=== PATIENT | female | born 1940 | race Caucasian/White ===

== ENCOUNTER 2016-10-22 07:03 | Emergency (ER) | payer MEDICARE ==
[2016-10-22] MEDS ORDERED: SODIUM CHLORIDE 0.9% 500 ML IV STA (07:26)
--- NOTE | 2016-10-22 07:31 | ED ---
General Adult HPI - General Chief complaint: Abdominal Pain Stated complaint: Abdominal Pain Time Seen by Provider: 10/22/16 07:05 Source: patient, RN notes reviewed Mode of arrival: ambulatory Limitations: no limitations - History of Present Illness Initial comments: This is a 76-year-old female who presents to emergency department complaining that she does not feel well. Patient states last night she started not feeling well and today she woke up she was nauseated and she vomited times one. Patient denies any diarrhea. Patient states currently she is not nauseous and she is in no pain. Patient states the abdominal pain was more of a discomfort diffusely through her abdomen. Patient states she's having normal bowel movements. Patient denies fever or chills. Patient denies any chest pain difficulty breathing shortness of breath. Patient states she had similar symptoms a month ago. And they went away on their own. Patient denies headache patient denies numbness weakness. Patient states she is supposed to follow up with her primary medical care doctor on 5:15. Patient denies any dysuria hematuria urinary frequency. - Related Data Home Medications Medication Instructions Recorded Confirmed ALPRAZolam [Alprazolam] 0.25 mg PO HS 10/22/16 10/22/16 Losartan Potassium [Losartan 25 mg PO QAM 10/22/16 10/22/16 Potassium] Magnesium 200 mg PO DAILY 10/22/16 10/22/16 Omeprazole [PriLOSEC] 20 mg PO HS 10/22/16 10/22/16 Ubidecarenone [Co Q-10] 100 mg PO DAILY 10/22/16 10/22/16 Allergies Allergy/AdvReac Type Severity Reaction Status Date / Time No Known Allergies Allergy Verified 10/22/16 07:32 Review of Systems ROS Statement: Those systems with pertinent positive or pertinent negative responses have been documented in the HPI. ROS Other: All systems not noted in ROS Statement are negative. Past Medical History Past Medical History: GERD/Reflux, Hypertension History of Any Multi-Drug Resistant Organisms: None Reported Past Surgical History: Hysterectomy, Orthopedic Surgery Past Psychological History: No Psychological Hx Reported Smoking Status: Former smoker Past Alcohol Use History: Occasional Past Drug Use History: None Reported General Exam - General Exam Comments Initial Comments: GENERAL: Patient is well-developed and well-nourished. Patient is nontoxic and well- hydrated and is in mild distress. ENT: Neck is soft and supple. No significant lymphadenopathy is noted. Oropharynx is clear. Moist mucous membranes. Neck has full range of motion without eliciting any pain. EYES: The sclera were anicteric and conjunctiva were pink and moist. Extraocular movements were intact and pupils were equal round and reactive to light. Eyelids were unremarkable. PULMONARY: Unlabored respirations. Good breath sounds bilaterally. No audible rales rhonchi or wheezing was noted. CARDIOVASCULAR: There is a regular rate and rhythm without any murmurs gallops or rubs. ABDOMEN: Soft and nontender with normal bowel sounds. No palpable organomegaly was noted. There is no palpable pulsatile mass. SKIN: Skin is clear with no lesions or rashes and otherwise unremarkable. NEUROLOGIC: Patient is alert and oriented x3. Cranial nerves II through XII are grossly intact. Motor and sensory are also intact. Normal speech, volume and content. Symmetrical smile. MUSCULOSKELETAL: Normal extremities with adequate strength and full range of motion. No lower extremity swelling or edema. No calf tenderness. LYMPHATICS: No significant lymphadenopathy is noted PSYCHIATRIC: Normal psychiatric evaluation. Normal interpersonal interactions appears functionally intact in deals appropriately with others. Limitations: no limitations Course Vital Signs 10/22/16 10/22/16 10/22/16 07:05 08:00 08:49 Temperature 99.7 F H 98.2 F 98.1 F Pulse Rate 83 80 77 Respiratory 18 18 18 Rate Blood Pressure 194/86 169/81 133/58 O2 Sat by Pulse 97 100 97 Oximetry 10/22/16 11:09 Temperature 98.4 F Pulse Rate 82 Respiratory 18 Rate Blood Pressure 135/85 O2 Sat by Pulse 97 Oximetry Medical Decision Making - Medical Decision Making I went back into the room to reevaluate the patient she stated she still didn't feel right but she was having no pain she is not short of breath she is having no nausea at this time and she felt as though she could go home. - Lab Data Result diagrams: 10/22/16 07:40 10/22/16 07:40 Lab Results 10/22/16 10/22/16 10/22/16 Range/Units 07:40 07:40 11:05 WBC 11.7 H (3.8-10.6) k/uL RBC 5.60 H (3.80-5.40) m/uL Hgb 15.8 (11.4-16.0) gm/dL Hct 49.1 H (34.0-46.0) % MCV 87.5 (80.0-100.0) fL MCH 28.3 (25.0-35.0) pg MCHC 32.3 (31.0-37.0) g/dL RDW 13.9 (11.5-15.5) % Plt Count 277 (150-450) k/uL Neutrophils % 86 % Lymphocytes % 4 % Monocytes % 6 % Eosinophils % 1 % Basophils % 1 % Neutrophils # 10.1 H (1.3-7.7) k/uL Lymphocytes # 0.5 L (1.0-4.8) k/uL Monocytes # 0.6 (0-1.0) k/uL Eosinophils # 0.1 (0-0.7) k/uL Basophils # 0.1 (0-0.2) k/uL Sodium 140 (137-145) mmol/L Potassium 4.8 (3.5-5.1) mmol/L Chloride 103 (98-107) mmol/L Carbon Dioxide 27 (22-30) mmol/L Anion Gap 10 mmol/L BUN 15 (7-17) mg/dL Creatinine 0.69 (0.52-1.04) mg/dL Est GFR (MDRD) Af Amer >60 (>60 ml/min/1.73 sqM) Est GFR (MDRD) Non-Af >60 (>60 ml/min/1.73 sqM) Glucose 120 H (74-99) mg/dL Calcium 9.4 (8.4-10.2) mg/dL Total Bilirubin 0.8 (0.2-1.3) mg/dL AST 33 (14-36) U/L ALT 42 (9-52) U/L Alkaline Phosphatase 100 (38-126) U/L Total Protein 8.0 (6.3-8.2) g/dL Albumin 4.4 (3.5-5.0) g/dL Amylase 66 (30-110) U/L Lipase 146 (23-300) U/L Urine Color Yellow Urine Appearance Clear (Clear) Urine pH 6.5 (5.0-8.0) Ur Specific [place] 1.019 (1.001-1.035) Urine Protein Negative (Negative) Urine Glucose (UA) Negative (Negative) Urine Ketones Negative (Negative) Urine Blood Negative (Negative) Urine Nitrite Negative (Negative) Urine Bilirubin Negative (Negative) Urine Urobilinogen <2.0 (<2.0) mg/dL Ur Leukocyte Esterase Negative (Negative) Disposition Clinical Impression: Viral illness Disposition: HOME SELF-CARE Condition: Good Instructions: Viral Syndrome (ED) Referrals: Ham Sykes MD [Primary Care Provider] - 1-2 days Time of Disposition: 11:35
[2016-10-22] MEDS ORDERED: ONDANSETRON 4 MG/2 ML VIAL IVP STA (07:43)
[2016-10-22 07:58] LABS: Basophils # (A) 0.1 k/uL (0-0.2); Basophils % (A) 1 %; CH 28.7; Eosinophils # (A) 0.1 k/uL (0-0.7); Eosinophils % (A) 1 %; HCT 49.1 % (34.0-46.0); HDW 2.55; HGB 15.8 gm/dL (11.4-16.0); Luc # (Auto) 0.24; Luc % (Auto) 2; Lymphocytes # (A) 0.5 k/uL (1.0-4.8); Lymphocytes % (A) 4 %; MCH 28.3 pg (25.0-35.0); MCHC 32.3 g/dL (31.0-37.0); MCV 87.5 fL (80.0-100.0); Mean Platelet Volume 6.5; Monocytes # (A) 0.6 k/uL (0-1.0); Monocytes % (A) 6 %; Neutrophils # (A) 10.1 k/uL (1.3-7.7); Neutrophils % (A) 86 %; RDW 13.9 % (11.5-15.5); WBC 11.7 k/uL (3.8-10.6); WBC (Perox) 11.15
[2016-10-22 08:10] LABS: ALT 42 U/L (9-52); AST 33 U/L (14-36); Alkaline Phosphatase 100 U/L (38-126); Amylase 66 U/L (30-110); Anion Gap 10 mmol/L; Blood Urea Nitrogen 15 mg/dL (7-17); Calcium 9.4 mg/dL (8.4-10.2); Carbon Dioxide 27 mmol/L (22-30); Chloride 103 mmol/L (98-107); Glucose 120 mg/dL (74-99); Non-African American GFR(MDRD) >60 (>60 ml/min/1.73 sqM); Potassium 4.8 mmol/L (3.5-5.1); Sodium 140 mmol/L (137-145); Total Bilirubin 0.8 mg/dL (0.2-1.3)
--- NOTE | 2016-10-22 08:35 | XR ---
EXAMINATION TYPE: XR KUB DATE OF EXAM: 10/22/2016 8:22 AM COMPARISON: NONE HISTORY: Pain TECHNIQUE: Single supine KUB image of the abdomen is obtained FINDINGS: Small bowel demonstrates no evidence for dilatation or air fluid levels. Gas and fecal material is seen in non-distended colon. No convincing evidence for pneumoperitoneum. No unusual calcifications. The lung bases are clear. The osseous structures are intact. IMPRESSION: 1. Overall nonobstructive bowel gas pattern.
[2016-10-22 11:14] VITALS: TEMP 98.4
[2016-10-22 11:21] LABS: Appearance,Urine Clear (Clear); Bilirubin,Urine Negative (Negative); Glucose,Urine (UA) Negative (Negative); Ketones,Urine Negative (Negative); Leukocyte Esterase,Urine Negative (Negative); Nitrite,Urine Negative (Negative); PH, Urine 6.5 (5.0-8.0); Protein,Urine Negative (Negative); Specific Gravity,Urine 1.019 (1.001-1.035); UA Billing (MACRO vs. MICRO) CHEM; Urobilinogen,Urine <2.0 mg/dL (<2.0)
[2016-10-22 11:55] VITALS: BP 140/71; PULSE 95; RESP 16
== END 2016-10-22 11:53 | disposition home or self-care (01) ==
LOC: EC 07:03
DX: B34.9 Viral infection, unspecified (principal); R11.2 Nausea with vomiting, unspecified; I10 Essential (primary) hypertension; K21.9 Gastro-esophageal reflux disease without esophagitis; Z79.899 Other long term (current) drug therapy; Z87.891 Personal history of nicotine dependence
CPT/HCPCS: 36415; 80053; 82150; 83690; 85025; 81003; 74000; 99284; 96374; 96361; J2405

== ENCOUNTER → 2017-03-05 | Outpatient (CLI) | payer MEDICARE ==
--- NOTE | 2017-03-08 10:28 | MM ---
Reason for exam: screening (asymptomatic). Last mammogram was performed 2 years ago. History: Patient is postmenopausal. Physical Findings: A clinical breast exam by your physician is recommended on an annual basis and results should be correlated with mammographic findings. MG 3D Screening Mammo W/Cad Bilateral CC and MLO view(s) were taken. Prior study comparison: March 19, 2015, bilateral MG screening mammo w CAD. November 24, 2013, bilateral MG screening mammo w CAD. There are scattered fibroglandular densities. There are typically benign vascular calcifications in both breasts. There is no discrete abnormality. ASSESSMENT: Negative, BI-RAD 1 RECOMMENDATION: Routine screening mammogram of both breasts in 1 year.
== END | disposition home or self-care (01) ==
LOC: RADMAMWWP 09:53
PROVIDERS: ATTEND Internal Medicine
DX: Z12.31 Encounter for screening mammogram for malignant neoplasm of breast (principal)
CPT/HCPCS: 77063; G0202

== ENCOUNTER → 2018-09-30 | Outpatient (CLI) | payer MEDICARE ==
--- NOTE | 2018-09-30 12:35 | BD ---
EXAMINATION TYPE: Axial Bone Density DATE OF EXAM: 09/30/2018 COMPARISON: NONE CLINICAL HISTORY: Height: 5 FT Weight: 139 FRAX RISK QUESTIONS: Glucocorticoids (More than 3mos): STEROIDS FOR HER EYES FROM OCTOBER- MAY 2018 (Ex: prednisone, prednisolone, methylprednisolone, dexamethasone, and hydrocortisone). RISK FACTORS HISTORY OF: Active: NO Postmenopausal woman: TOTAL HYST AGE 48 Lost more than 2 inches in height since high school: YES MEDICATIONS: Prednisone or other steroids: EYE STEROIDS How Long: FROM OCTOBER - MAY 2018 Additional Medications: BLOOD PRESSURE MEDS, ACID REFLUX MEDS Additional History: EXAM MEASUREMENTS: Bone mineral densitometry was performed using the [employer]. Bone mineral density as measured about the Lumbar spine is: ----- L1-L4(G/cm2): 1.585 T Score Values are as follows: ----- L2: 3.2 ----- L3: 3.7 ----- L4: 3.5 ----- L1-L4: 3.4 Bone mineral density has: INCREASED 2.6 % since study of: 2014 Bone mineral density about the R hip (g/cm2): 1.192 Bone mineral density about the L hip (g/cm2): 1.095 T Score values are as follows: -----R Neck: 1.1 -----L Neck: 0.4 -----R Total: 1.5 -----L Total: 1.9 Bone mineral density has: INCREASED 1.5 % since study of: 2014 IMPRESSION: No evidence for osteoporosis or osteopenia. NOTE: T-SCORE=SD OF THE YOUNG ADULT MEAN.
--- NOTE | 2018-10-04 08:24 | MM ---
Reason for exam: screening (asymptomatic). Last mammogram was performed 1 year and 7 months ago. History: Patient is postmenopausal. Physical Findings: A clinical breast exam by your physician is recommended on an annual basis and results should be correlated with mammographic findings. MG 3D Screening Mammo W/Cad Bilateral CC and MLO view(s) were taken. Prior study comparison: March 05, 2017, bilateral MG 3d screening mammo w/cad. March 19, 2015, bilateral MG screening mammo w CAD. There are scattered fibroglandular densities. No significant changes when compared with prior studies. ASSESSMENT: Negative, BI-RAD 1 RECOMMENDATION: Routine screening mammogram of both breasts in 1 year.
== END ==
LOC: RADBDWWP 10:24
PROVIDERS: ATTEND Obstetrics & Gynecology
DX: Z12.31 Encounter for screening mammogram for malignant neoplasm of breast (principal); Z78.0 Asymptomatic menopausal state
CPT/HCPCS: 77063; 77067; 77080

== ENCOUNTER → 2020-11-14 | Outpatient (CLI) | payer MEDICARE ==
--- NOTE | 2020-11-15 07:47 | MM ---
Reason for exam: screening (asymptomatic). Last mammogram was performed 2 years and 1 month ago. History: Patient is postmenopausal. Physical Findings: A clinical breast exam by your physician is recommended on an annual basis and results should be correlated with mammographic findings. MG 3D Screening Mammo W/Cad Bilateral CC and MLO view(s) were taken. Prior study comparison: September 30, 2018, bilateral MG 3d screening mammo w/cad. March 05, 2017, bilateral MG 3d screening mammo w/cad. There are scattered fibroglandular densities. Finding: There are typically benign vascular calcifications. No significant changes in finding since September 30, 2018 and March 05, 2017. ASSESSMENT: Benign, BI-RAD 2 RECOMMENDATION: Routine screening mammogram of both breasts in 1 year.
== END | disposition home or self-care (01) ==
LOC: RADMAMWWP 09:10
PROVIDERS: ATTEND Internal Medicine
DX: Z12.31 Encounter for screening mammogram for malignant neoplasm of breast (principal); Z78.0 Asymptomatic menopausal state
CPT/HCPCS: 77063; 77067

== ENCOUNTER → 2021-11-28 | Outpatient (CLI) | payer MEDICARE ==
--- NOTE | 2021-11-28 16:07 | BD ---
EXAMINATION TYPE: Axial Bone Density DATE OF EXAM: 11/28/2021 COMPARISON: 09/30/2018 CLINICAL HISTORY: 81 years year old Female. ICD-10 CODE: BONE DISORDER M899 Height: 59.5 IN Weight: 137 LBS RISK FACTORS HISTORY OF: Active: YES Postmenopausal woman: TOTAL HYST AGE 48 Lost more than 2 inches in height since high school: YES 06/22" MEDICATIONS: Additional Medications: VIT D, HIGH BLOOD PRESSURE MEDS, ACID REFLUX MEDS EXAM MEASUREMENTS: Bone mineral densitometry was performed using the [employer] System. Bone mineral density as measured about the Lumbar spine is: ----- L1-L4(G/cm2): 1.616 T Score Values are as follows: ----- L1: 3.3 ----- L2: 3.4 ----- L3: 4.1 ----- L4: 3.5 ----- L1-L4: 3.6 Bone mineral density has: Increased 1.5% since study of: 09/30/2018 Bone mineral density about the R hip (g/cm2): 1.146 Bone mineral density about the L hip (g/cm2): 1.159 T Score values are as follows: -----R Neck: 0.8 -----L Neck: 0.9 -----R Total: 1.4 -----L Total: 2.0 Bone mineral density has: Decreased -0.2% since study of: 09/30/2018 FRAX%s: The graph provided illustrates a 2.2 chance for a major osteoporotic fx and a 0.3 chance for the hips probability for fx in 10 years time. IMPRESSION: Normal (Values between +1 and -1 indicate normal bone mass). Consider repeating this study in 5 year s or sooner if there is some new clinical indication. NOTE: T-SCORE=SD OF THE YOUNG ADULT MEAN.
--- NOTE | 2021-12-01 18:35 | MM ---
Reason for Exam: Screening (asymptomatic). Last mammogram was performed 1 year(s) and 1 month(s) ago. Patient History: Menarche at age 12. First Full-Term at age 21. Left ovary removed at age 47. Right ovary removed at age 47. Hysterectomy at age 47. Postmenopausal. Risk Values: Anitha 5 year model risk: 1.4%. NCI Lifetime model risk: 2.1%. Prior Study Comparison: 03/05/2017 Bilateral Screening Mammogram, [facility]. 09/30/2018 Bilateral Screening Mammogram, [facility]. 11/14/2020 Bilateral Screening Mammogram, [facility]. Tissue Density: There are scattered fibroglandular densities. Findings: Analyzed By CAD. Benign vascular calcifications on both sides. No significant change from prior exams. Overall Assessment: Negative, BI-RAD 1 Management: Screening Mammogram of both breasts in 1 year. A clinical breast exam by your physician is recommended on an annual basis and results should be correlated with mammographic findings. Also, the patient should continue monthly self breast exams. Electronically signed and approved by: Dali Ramirez M.D. Radiologist
== END | disposition home or self-care (01) ==
LOC: RADMAMWWP 06:56
PROVIDERS: ATTEND Internal Medicine
DX: Z12.31 Encounter for screening mammogram for malignant neoplasm of breast (principal); Z78.0 Asymptomatic menopausal state
CPT/HCPCS: 77063; 77067; 77080

== ENCOUNTER 2022-12-21 08:56 | Emergency (ER) | payer MEDICARE ==
[2022-12-21 09:11] VITALS: RESP 16
[2022-12-21] MEDS ORDERED: Acetaminophen-Codeine 300-30mg TAB PO STA (09:46)
[2022-12-21] MEDS ORDERED: IBUPROFEN 600 MG TAB PO STA (09:46)
[2022-12-21] MEDS ORDERED: CEPHALEXIN 500 MG CAP PO STA (09:46)
--- NOTE | 2022-12-21 10:23 | XR ---
EXAMINATION TYPE: XR knee complete RT DATE OF EXAM: 12/21/2022 COMPARISON: None HISTORY: Pain and redness TECHNIQUE: 3 view right knee FINDINGS: Tiny medial femoral condylar and tibial plateau spurs are present. Mild narrowing of the me dial compartment joint space may be present. No joint effusion is evident. Posterior superior patella r spurring is noted. No acute fracture or dislocation is evident. Follow up exams can be performed 7-10 days from acute trauma for continued pain IMPRESSION: 1. Mild degenerative changes medial compartment right knee.
--- NOTE | 2022-12-21 10:37 | ED ---
Lower Extremity Injury HPI - General Chief Complaint: Extremity Injury, Lower Stated Complaint: R knee infection,Tachy Time Seen by Provider: 12/21/22 09:20 Source: patient, RN notes reviewed Mode of arrival: ambulatory Limitations: no limitations - History of Present Illness Initial Comments: This is an 82-year-old female who presents to the emergency department for right knee pain. States that she [place] fell [place] a week ago and injured her right knee. 1-2 days ago, she started to notice redness and increased warmth around the abrasion. States that it also seems to be increasing in pain and she is concerned about infection. Denies any fevers. She is taking aspirin with no relief in pain. She is still able to walk without difficulty. Denies any fevers, chills, sore throat, cough, dyspnea, chest pain, palpitations, abdominal pain, nausea, vomiting, diarrhea, back pain, or headaches. MD Complaint: knee injury Onset/Timin -: week(s) - Related Data Home Medications Medication Instructions Recorded Confirmed Losartan Potassium 25 mg PO DAILY 10/22/16 12/21/22 Omeprazole [PriLOSEC] 20 mg PO DAILY@1200 10/22/16 12/21/22 Multivitamins, Thera [Multivitamin 1 tab PO DAILY 12/21/22 12/21/22 (formulary)] Previous Rx's Medication Instructions Recorded Cephalexin [Keflex] 500 mg PO Q6HR 7 Days #28 cap 12/21/22 Allergies Allergy/AdvReac Type Severity Reaction Status Date / Time prednisone AdvReac Rapid Verified 12/21/22 11:44 Heart Rate/Itching/Cough steroids AdvReac Rapid Uncoded 12/21/22 11:44 Heart Rate/Itching/Cough Review of Systems ROS Statement: Those systems with pertinent positive or pertinent negative responses have been documented in the HPI. ROS Other: All systems not noted in ROS Statement are negative. Past Medical History Past Medical History: GERD/Reflux, Hypertension History of Any Multi-Drug Resistant Organisms: None Reported Past Surgical History: Hysterectomy, Orthopedic Surgery Past Psychological History: No Psychological Hx Reported Smoking Status: Never smoker Past Alcohol Use History: Occasional Past Drug Use History: None Reported General Exam Limitations: no limitations General appearance: alert, in no apparent distress Head exam: Present: atraumatic, normocephalic, normal inspection Respiratory exam: Present: normal lung sounds bilaterally. Absent: respiratory distress, wheezes, rales, rhonchi, stridor Cardiovascular Exam: Present: regular rate, normal rhythm, normal heart sounds. Absent: systolic murmur, diastolic murmur, rubs, gallop, clicks Extremities exam: Present: other (Abrasion to the anterior aspect of the right patella. Minor surrounding erythema, warmth, and tenderness. No active drainage.) Neurological exam: Present: alert, oriented X3, CN II-XII intact Psychiatric exam: Present: normal affect, normal mood Course Vital Signs 12/21/22 12/21/22 09:07 12:15 Temperature 98.9 F 98.2 F Pulse Rate 89 62 Respiratory 16 16 Rate Blood Pressure 195/94 165/84 O2 Sat by Pulse 98 96 Oximetry Medical Decision Making - Medical Decision Making This is an 82-year-old female who presents emergency department for right knee pain. Was pt. sent in by a medical professional or institution? @ -No Did you speak to anyone other than the patient for history? @ -No Did you review nursing and triage notes? @ -Yes, and I agree, it is accurate with regards to the patient's symptoms. Were old charts reviewed? @ -No Differential Diagnosis? @ -Differential Knee Injury Fracture, dislocation, sprain, contusion, meniscus injury, ACL/LCL/MCL/PCL injury, this is not meant to be an all-inclusive list. EKG interpreted by me (3pts min.)? @ -None X-rays interpreted by me (1pt min.)? @ -X-ray of the right knee obtained. My interpretation identifies no evidence of soft tissue swelling. CT interpreted by me (1pt min.)? @ -Not obtained U/S interpreted by me (1pt. min.)? @ -Not obtained What testing was considered but not performed? (CT, X-rays, U/S, labs)? Why? @ -None What meds were considered but not given? Why? @ -None Did you discuss the management of the patient with other professionals? @ -No Did you reconcile home meds? @ -No Was smoking cessation discussed for >3mins.? @ -No Was critical care preformed (if so, how long)? @ -No Were there social determinants of health that impacted care today? How? (Homelessness, low income, unemployed, alcoholism, drug addiction, transportation, low edu. Level, literacy, decrease access to med. care, longterm, rehab)? @ -No Was there de-escalation of care discussed even if they declined? (Discuss DNR or withdrawal of care, Hospice)? @ -No What co-morbidities impacted this encounter? (DM, HTN, Smoking, COPD, CAD, Cancer, CVA, Hep., AIDS, mental health diagnosis, sleep apnea, morbid obesity)? @ -None Was patient admitted / discharged? @ -Discharged. On physical exam, she does appear to have a small abrasion over the knee where she fell. There is a very small amount of surrounding erythema and warmth. There are no open areas of drainage. She has no fevers and her vital signs are appropriate. X-ray of the right knee obtained revealing no acute findings, including no evidence of osseous destruction, soft tissue swelling, or subcutaneous gas formation. It appears that she might be starting to develop a small surrounding cellulitis. Prescription for Keflex provided with dosing instructions reviewed. Undiagnosed new problem with uncertain prognosis? @ -None Drug Therapy requiring intensive monitoring for toxicity (Heparin, Nitro, Insulin, Cardizem)? @ -None Were any procedures done? @ -None Diagnosis/symptom? @ -Cellulitis Acute, or Chronic, or Acute on Chronic? @ -Acute Uncomplicated (without systemic symptoms) or Complicated (systemic symptoms)? @ -Uncomplicated Side effects of treatment? @ -None Exacerbation, Progression, or Severe Exacerbation] @ -Not applicable Poses a threat to life or bodily function? @ -No Return precautions reviewed in depth, the patient is instructed to return to the emergency department with any new, worsening, or concerning symptoms. Patient ve rbalized understanding. This case was discussed in detail with the attending ED physician, Dr. Coy. Presentation, findings, and treatment plan discussed in detail as well. - Radiology Data Radiology results: report reviewed, image reviewed Disposition Clinical Impression: Cellulitis of knee, right Disposition: HOME SELF-CARE Instructions (If sedation given, give patient instructions): Cellulitis (ED) Additional Instructions: Return to the emergency department with any new, worsening, or concerning symptoms. Take the antibiotic as prescribed for 7 days. Alternate with ibuprofen and Tylenol as needed for pain relief. Follow up with your primary care provider in 1-2 days. Prescriptions: Cephalexin [Keflex] 500 mg PO Q6HR 7 Days #28 cap Is patient prescribed a controlled substance at d/c from ED?: No Referrals: Davey Iverson MD [Primary Care Provider] - 1-2 days
[2022-12-21] MEDS ORDERED: IBUPROFEN 600 MG STARTER PACK 4 TAB BTL PO STA (11:23)
[2022-12-21] MEDS ORDERED: ACET/COD 300 MG/30 MG STARTER PACK 6 TAB BTL PO STA (11:23)
[2022-12-21 12:16] VITALS: BP 165/84; PULSE 62; TEMP 98.2
== END 2022-12-21 12:31 | disposition home or self-care (01) ==
LOC: EC 08:56
DX: M17.11 Unilateral primary osteoarthritis, right knee (principal); I10 Essential (primary) hypertension; K21.9 Gastro-esophageal reflux disease without esophagitis; Z79.899 Other long term (current) drug therapy; Z88.8 Allergy status to other drugs, medicaments and biological substances
CPT/HCPCS: 99283

== ENCOUNTER → 2022-12-29 | Outpatient (CLI) | payer MEDICARE ==
--- NOTE | 2022-12-29 10:17 | MM ---
Reason for Exam: Screening (asymptomatic). Last mammogram was performed 1 year(s) and 1 month(s) ago. Patient History: Menarche at age 12. First Full-Term at age 21. Left ovary removed at age 47. Right ovary removed at age 47. Hysterectomy at age 47. Postmenopausal. Risk Values: Anitha 5 year model risk: 1.4%. NCI Lifetime model risk: 1.9%. Prior Study Comparison: 09/30/2018 Bilateral Screening Mammogram, [facility]. 11/14/2020 Bilateral Screening Mammogram, [facility]. 11/28/2021 Bilateral MG 3D screening mammo w/cad, [facility]. Tissue Density: The breast tissue is almost entirely fat. Findings: Analyzed By CAD. There is no suspicious group of microcalcifications or new suspicious mass in either breast. Overall Assessment: Negative, BI-RAD 1 Management: Screening Mammogram of both breasts in [address] [facility] will attempt to contact patient to return for supplemental views and ultrasound if indicated. Patient should continue monthly self-breast exams. A clinical breast exam by your physician is recommended on an annual basis. This exam should not preclude additional follow-up of suspicious palpable abnormalities. Note on Anitha scores and lifetime risk: 1. A Anitha score greater than 3% is considered moderate risk. If this is the case, consider specialist referral to assess eligibility for a risk reducing agent. 2. If overall lifetime risk for the development of breast cancer is 20% or higher, the patient may qualify for future screening with alternating mammogram and breast MRI. Electronically signed and approved by: Jet Corrales DO
== END | disposition home or self-care (01) ==
LOC: RADMAMWWP 07:13
PROVIDERS: ATTEND Family Medicine
DX: Z12.31 Encounter for screening mammogram for malignant neoplasm of breast (principal); Z78.0 Asymptomatic menopausal state
CPT/HCPCS: 77063; 77067

== ENCOUNTER 2023-07-26 19:17 | Emergency (ER) | payer MEDICARE ==
[2023-07-26 19:59] VITALS: TEMP 98.2
--- NOTE | 2023-07-26 20:15 | ED ---
General Adult HPI - General Source: patient Mode of arrival: ambulatory Limitations: no limitations <Juan Pablo Butt - Last Filed: 07/26/23 20:16> <Hugo Ugarte - Last Filed: 08/10/23 05:43> - General Chief complaint: Recheck/Abnormal Lab/Rx Stated complaint: high BP - History of Present Illness Initial comments: 83-year-old female with a past medical history significant for hypertension presenting to the ED with a chief complaint of hypertension. Patient states over the past few weeks has been tracking her blood pressure secondary to difficulties with controlling her high blood pressure. Notes recently was just increased on her losartan dose to 75 mg which reports she has been taking as instructed. States today her blood pressure was in the 200s systolic prompting presentation to the ED for further evaluation. No chest pain shortness of breath at this time. (Juan Pablo Butt) - Related Data Home Medications Medication Instructions Recorded Confirmed Losartan Potassium 25 mg PO DAILY 10/22/16 12/21/22 Omeprazole [PriLOSEC] 20 mg PO DAILY@1200 10/22/16 12/21/22 Multivitamins, Thera [Multivitamin 1 tab PO DAILY 12/21/22 12/21/22 (formulary)] Previous Rx's Medication Instructions Recorded Cephalexin [Keflex] 500 mg PO Q6HR 7 Days #28 cap 12/21/22 Allergies Allergy/AdvReac Type Severity Reaction Status Date / Time prednisone AdvReac Rapid Verified 07/26/23 19:56 Heart Rate/Itching/Cough steroids AdvReac Rapid Uncoded 07/26/23 19:56 Heart Rate/Itching/Cough Review of Systems ROS Other: All systems not noted in ROS Statement are negative. <Juan Pablo Butt - Last Filed: 07/26/23 20:16> ROS Other: All systems not noted in ROS Statement are negative. <Hugo Ugarte - Last Filed: 08/10/23 05:43> ROS Statement: Those systems with pertinent positive or pertinent negative responses have been documented in the HPI. Past Medical History Past Medical History: GERD/Reflux, Hypertension History of Any Multi-Drug Resistant Organisms: None Reported Past Surgical History: Hysterectomy, Orthopedic Surgery Past Psychological History: No Psychological Hx Reported Smoking Status: Never smoker Past Alcohol Use History: Occasional Past Drug Use History: None Reported <Juan Pablo Butt - Last Filed: 07/26/23 20:16> General Exam Limitations: no limitations <Juan Pablo Butt - Last Filed: 07/26/23 20:16> Limitations: no limitations General appearance: alert, in no apparent distress Head exam: Present: atraumatic, normocephalic Eye exam: Present: normal appearance. Absent: scleral icterus, conjunctival injection ENT exam: Present: normal oropharynx Neck exam: Present: normal inspection Respiratory exam: Present: normal lung sounds bilaterally. Absent: respiratory distress, wheezes, rales, rhonchi, stridor, accessory muscle use Cardiovascular Exam: Present: regular rate, normal rhythm, normal heart sounds. Absent: systolic murmur, diastolic murmur, rubs, gallop GI/Abdominal exam: Present: soft. Absent: distended, tenderness, guarding, shamika ound, rigid, mass Extremities exam: Present: normal inspection, normal capillary refill. Absent: pedal edema, calf tenderness Back exam: Present: normal inspection. Absent: CVA tenderness (R), CVA tenderness (L) Neurological exam: Present: alert Skin exam: Present: warm, dry, intact, normal color. Absent: rash <Hugo Ugarte - Last Filed: 08/10/23 05:43> - General Exam Comments Initial Comments: Visual Physical Exam Vital signs reviewed General: Well-appearing, nontoxic, no acute distress. Head: Normocephalic, atraumatic Eyes: PERRLA, EOMI ENT: Airway patent Chest: Nonlabored breathing Skin: No visual rash, normal skin tone Neuro: Alert and oriented 3 Musculoskeletal: No gross abnormalities (Juan Pablo Butt) Course Vital Signs 07/26/23 07/26/23 07/26/23 19:54 21:45 22:57 Temperature 98.2 F Pulse Rate 67 67 59 L Respiratory 18 16 16 Rate Blood Pressure 212/88 174/73 138/78 O2 Sat by Pulse 98 96 96 Oximetry EKG Findings - EKG Results: EKG: interpreted by ERMD, sinus rhythm (With occasional supraventricular complex, rate 70 bpm), normal axis - Blocks, [place], Hypertrophy, ST Abn: QRS axis and voltage: pulmonary disease, low voltage (<0.5 MV total QRS and <1.0 MV in each precordial lead) <Hugo Ugarte - Last Filed: 08/10/23 05:43> Medical Decision Making <Juan Pablo Butt - Last Filed: 07/26/23 20:16> - Lab Data Result diagrams: 07/26/23 20:31 07/26/23 20:31 <Hugo Ugarte - Last Filed: 08/10/23 05:43> - Medical Decision Making Quicknote portion performed. Signed Juan Pablo Butt PA-C (Juan Pablo Butt) The patient had chest x-ray which I interpreted as negative for acute infiltrate, congestive heart failure, pneumothorax Was pt. sent in by a medical professional or institution (, PA, HAND ENGRAVER, urgent care, hospital, or correction...) When possible be specific @ -[No] Did you speak to anyone other than the patient for history (EMS, parent, family, police, friend...)? What history was obtained from this source @ -[No] Did you review nursing and triage notes (agree or disagree)? Why? @ -[I reviewed and agree with nursing and triage notes] Were old charts reviewed (outside hosp., previous admission, EMS record, old EKG, old radiological studies, urgent care reports/EKG's, correction records)? Report findings @ -[No old charts were reviewed] Differential Diagnosis (chest pain, altered mental status, abdominal pain women, abdominal pain men, vaginal bleeding, weakness, fever, dyspnea, syncope, headache, dizziness, GI bleed, back pain, seizure, CVA, palpatations, mental health, musculoskeletal)? @ -[Amphetamine Toxicity Anxiety Disorders Apnea, Sleep Cocaine-Related Cardiomyopathy Heart Failure Hyperthyroidism, Thyroid Storm, and Graves Disease Hypertrophic Cardiomyopathy Myocardial Infarction Phencyclidine Toxicity Primary Aldosteronism Stroke, Hemorrhagic Stroke, Ischemic EKG interpreted by me (3pts min.). @ -[I interpreted as above] X-rays interpreted by me (1pt min.). @ -[I interpreted as above CT interpreted by me (1pt min.). @ -[None done] U/S interpreted by me (1pt. min.). @ -[None done] What testing was considered but not performed or refused? (CT, X-rays, U/S, labs)? Why? @ -[None] What meds were considered but not given or refused? Why? @ -[None] Did you discuss the management of the patient with other professionals (professionals i.e. , PA, HAND ENGRAVER, lab, RT, psych nurse, social work faculty member, fur stretcher, teacher, hydrographical technical officer, case therapist)? Give summary @ -[No] Was smoking cessation discussed for >3mins.? @ -[No] Was critical care preformed (if so, how long)? @ -[No] Were there social determinants of health that impacted care today? How? (Homelessness, low income, unemployed, alcoholism, drug addiction, transportation, low edu. Level, literacy, decrease access to med. care, usp, rehab)? @ -[No] Was there de-escalation of care discussed even if they declined (Discuss DNR or withdrawal of care, Hospice)? DNR status @ -[No] What co-morbidities impacted this encounter? (DM, HTN, Smoking, COPD, CAD, Cancer, CVA, ARF, Chemo, Hep., AIDS, mental health diagnosis, sleep apnea, morbid obesity)? @ -[None] Was patient admitted / discharged? Hospital course, mention meds given and route, prescriptions, significant lab abnormalities, going to OR and other pertinent info. @ -[Patient is an 83-year-old woman with history of hypertension who has been having increased blood pressure recently. She has had improvement here. The hypertension is asymptomatic, will have the patient follow-up with her physician to ensure that blood pressure control is maintained. Discussed return parameters. Undiagnosed new problem with uncertain prognosis? @ -[No] Drug Therapy requiring intensive monitoring for toxicity (Heparin, Nitro, Insulin, Cardizem)? @ -[No] Were any procedures done? @ -[No] Diagnosis/symptom? @ -[Acute on chronic hypertension Acute, or Chronic, or Acute on Chronic? @ -[default] Uncomplicated (without systemic symptoms) or Complicated (systemic symptoms)? @ -[Uncomplicated Side effects of treatment? @ -[No] Exacerbation, Progression, or Severe Exacerbation? @ -[No] Poses a threat to life or bodily function? How? (Chest pain, [place], [place], pneumonia, PE, COPD, DKA, ARF, appy, cholecystitis, CVA, Diverticulitis, Homicidal, Suicidal, threat to staff... and all critical care pts) @ -[No] (Trachy,Hugo) - Lab Data Lab Results 07/26/23 07/26/23 07/26/23 Range/Units 20:31 20:31 20:31 WBC 7.7 (3.8-10.6) k/uL RBC 5.29 (3.80-5.40) m/uL Hgb 15.1 (11.4-16.0) gm/dL Hct 46.5 H (34.0-46.0) % MCV 87.9 (80.0-100.0) fL MCH 28.6 (25.0-35.0) pg MCHC 32.5 (31.0-37.0) g/dL RDW 13.5 (11.5-15.5) % Plt Count 342 (150-450) k/uL MPV 7.8 Neutrophils % 59 % Lymphocytes % 26 % Monocytes % 8 % Eosinophils % 4 % Basophils % 1 % Neutrophils # 4.5 (1.3-7.7) k/uL Lymphocytes # 2.0 (1.0-4.8) k/uL Monocytes # 0.6 (0-1.0) k/uL Eosinophils # 0.3 (0-0.7) k/uL Basophils # 0.1 (0-0.2) k/uL PT 10.3 (10.0-12.5) sec INR 0.9 (<1.2) APTT 24.2 (22.0-30.0) sec Sodium 139 (137-145) mmol/L Potassium 4.4 (3.5-5.1) mmol/L Chloride 105 (98-107) mmol/L Carbon Dioxide 26 (22-30) mmol/L Anion Gap 8 mmol/L BUN 12 (7-17) mg/dL Creatinine 0.67 (0.52-1.04) mg/dL Est GFR (CKD-EPI)AfAm >90 (>60 ml/min/1.73 sqM) Est GFR (CKD-EPI)NonAf 82 (>60 ml/min/1.73 sqM) Glucose 107 H (74-99) mg/dL Calcium 9.7 (8.4-10.2) mg/dL Magnesium 2.3 (1.6-2.3) mg/dL Total Bilirubin 0.6 (0.2-1.3) mg/dL AST 32 (14-36) U/L ALT 26 (4-34) U/L Alkaline Phosphatase 121 (38-126) U/L Troponin I (0.000-0.034) ng/mL Total Protein 8.0 (6.3-8.2) g/dL Albumin 4.5 (3.5-5.0) g/dL 07/26/23 Range/Units 20:31 WBC (3.8-10.6) k/uL RBC (3.80-5.40) m/uL Hgb (11.4-16.0) gm/dL Hct (34.0-46.0) % MCV (80.0-100.0) fL MCH (25.0-35.0) pg MCHC (31.0-37.0) g/dL RDW (11.5-15.5) % Plt Count (150-450) k/uL MPV Neutrophils % % Lymphocytes % % Monocytes % % Eosinophils % % Basophils % % Neutrophils # (1.3-7.7) k/uL Lymphocytes # (1.0-4.8) k/uL Monocytes # (0-1.0) k/uL Eosinophils # (0-0.7) k/uL Basophils # (0-0.2) k/uL PT (10.0-12.5) sec INR (<1.2) APTT (22.0-30.0) sec Sodium (137-145) mmol/L Potassium (3.5-5.1) mmol/L Chloride (98-107) mmol/L Carbon Dioxide (22-30) mmol/L Anion Gap mmol/L BUN (7-17) mg/dL Creatinine (0.52-1.04) mg/dL Est GFR (CKD-EPI)AfAm (>60 ml/min/1.73 sqM) Est GFR (CKD-EPI)NonAf (>60 ml/min/1.73 sqM) Glucose (74-99) mg/dL Calcium (8.4-10.2) mg/dL Magnesium (1.6-2.3) mg/dL Total Bilirubin (0.2-1.3) mg/dL AST (14-36) U/L ALT (4-34) U/L Alkaline Phosphatase (38-126) U/L Troponin I <0.012 (0.000-0.034) ng/mL Total Protein (6.3-8.2) g/dL Albumin (3.5-5.0) g/dL Disposition <Juan Pablo Butt - Last Filed: 07/26/23 20:16> Is patient prescribed a controlled substance at d/c from ED?: No <Hugo Ugarte - Last Filed: 08/10/23 05:43> Clinical Impression: Hypertension Disposition: HOME SELF-CARE Condition: Good Instructions (If sedation given, give patient instructions): Hypertension (ED) Referrals: Melissa Andrade DO [Primary Care Provider] - 1-2 days
--- NOTE | 2023-07-26 21:04 | XR ---
EXAMINATION TYPE: XR chest 2V DATE OF EXAM: 07/26/2023 8:36 PM CLINICAL INDICATION:Female, 83 years old with history of Chest Pain; [facility] COMPARISON: Chest radiographs from 12/29/2010 TECHNIQUE: XR chest 2V Frontal and lateral views of the chest. FINDINGS: Lungs/Pleura: There is flattening of the diaphragm with increased lucency of the lungs. No evidence o f pneumothorax, pleural effusion or focal consolidation. Pulmonary vascularity: Unremarkable. Heart/mediastinum: Cardiomediastinal silhouette is unremarkable. Musculoskeletal: No acute osseous pathology. IMPRESSION: 1. No acute cardiopulmonary disease process. 2. COPD changes.
[2023-07-26 21:24] LABS: Basophils # (A) 0.1 k/uL (0-0.2); Basophils % (A) 1 %; Eosinophils # (A) 0.3 k/uL (0-0.7); Eosinophils % (A) 4 %; HCT 46.5 % (34.0-46.0); HGB 15.1 gm/dL (11.4-16.0); Lymphocytes % (A) 26 %; MCH 28.6 pg (25.0-35.0); MCHC 32.5 g/dL (31.0-37.0); MCV 87.9 fL (80.0-100.0); Mean Platelet Volume 7.8; Monocytes # (A) 0.6 k/uL (0-1.0); Monocytes % (A) 8 %; Neutrophils # (A) 4.5 k/uL (1.3-7.7); Neutrophils % (A) 59 %; Platelet Count 342 k/uL (150-450); RBC 5.29 m/uL (3.80-5.40); RDW 13.5 % (11.5-15.5); WBC 7.7 k/uL (3.8-10.6)
[2023-07-26 21:32] LABS: INR 0.9 (<1.2); Partial Thromboplastin Time 24.2 sec (22.0-30.0); Prothrombin Time 10.3 sec (10.0-12.5)
[2023-07-26 21:34] LABS: ALT 26 U/L (4-34); AST 32 U/L (14-36); African American GFR (CKD) >90 (>60 ml/min/1.73 sqM); Albumin 4.5 g/dL (3.5-5.0); Alkaline Phosphatase 121 U/L (38-126); Anion Gap 8 mmol/L; Blood Urea Nitrogen 12 mg/dL (7-17); Calcium 9.7 mg/dL (8.4-10.2); Carbon Dioxide 26 mmol/L (22-30); Chloride 105 mmol/L (98-107); Glucose 107 mg/dL (74-99); Magnesium 2.3 mg/dL (1.6-2.3); Non-African American GFR(CKD) 82 (>60 ml/min/1.73 sqM); Potassium 4.4 mmol/L (3.5-5.1); Sodium 139 mmol/L (137-145); Total Bilirubin 0.6 mg/dL (0.2-1.3)
[2023-07-26 22:10] VITALS: RESP 16
[2023-07-26] MEDS: cloNIDine HCL 0.2 MG TAB PO STA (22:14)
[2023-07-26 23:04] VITALS: BP 138/78; PULSE 59
== END 2023-07-26 23:04 | disposition home or self-care (01) ==
LOC: EC 19:17
DX: I10 Essential (primary) hypertension (principal); K21.9 Gastro-esophageal reflux disease without esophagitis; Z79.899 Other long term (current) drug therapy; Z90.710 Acquired absence of both cervix and uterus
CPT/HCPCS: 36415; 71046; 80053; 83735; 84484; 85025; 85610; 85730; 93005; 99284

== ENCOUNTER 2023-12-05 07:11 | Emergency (ER) | payer MEDICARE ==
--- NOTE | 2023-12-05 07:54 | ED ---
General Adult HPI - General Chief complaint: Recheck/Abnormal Lab/Rx Stated complaint: Nausea Time Seen by Provider: 12/05/23 07:20 Source: patient, RN notes reviewed, old records reviewed Mode of arrival: ambulatory Limitations: no limitations - History of Present Illness Initial comments: This is an 83-year-old female who presents to the emergency department complaining that she has been feeling weak and nauseous for the last 6 months. Patient states gotten much worse over the last 2 weeks. Patient states she has been to her doctor's office multiple times and they have not yet figured out the problem. Patient denies any vomiting she denies any diarrhea she denies any abdominal pain. Patient denies any chest pain shortness of breath. Patient denies any fever chills or cough. Patient denies back pain. Patient denies any dysuria hematuria urinary frequency. She states she just is very nauseous and feels weaker and weaker - Related Data Home Medications Medication Instructions Recorded Confirmed Losartan Potassium 25 mg PO DAILY 10/22/16 12/21/22 Omeprazole [PriLOSEC] 20 mg PO DAILY@1200 10/22/16 12/21/22 Multivitamins, Thera [Multivitamin 1 tab PO DAILY 12/21/22 12/21/22 (formulary)] Previous Rx's Medication Instructions Recorded Cephalexin [Keflex] 500 mg PO Q6HR 7 Days #28 cap 12/21/22 Allergies Allergy/AdvReac Type Severity Reaction Status Date / Time prednisone AdvReac Rapid Verified 12/05/23 07:22 Heart Rate/Itching/Cough steroids AdvReac Rapid Uncoded 12/05/23 07:22 Heart Rate/Itching/Cough Review of Systems ROS Statement: Those systems with pertinent positive or pertinent negative responses have been documented in the HPI. ROS Other: All systems not noted in ROS Statement are negative. Past Medical History Past Medical History: GERD/Reflux, Hypertension History of Any Multi-Drug Resistant Organisms: None Reported Past Surgical History: Hysterectomy, Orthopedic Surgery Past Psychological History: No Psychological Hx Reported Smoking Status: Never smoker Past Alcohol Use History: Occasional Past Drug Use History: None Reported General Exam - General Exam Comments Initial Comments: GENERAL: Patient is well-developed and well-nourished. Patient is nontoxic and well- hydrated and is in no acute distress. ENT: Neck is soft and supple. No significant lymphadenopathy is noted. Oropharynx is clear. Moist mucous membranes. Neck has full range of motion without eliciting any pain. EYES: The sclera were anicteric and conjunctiva were pink and moist. Extraocular movements were intact and pupils were equal round and reactive to light. Eyelids were unremarkable. PULMONARY: Unlabored respirations. Good breath sounds bilaterally. No audible rales rhonchi or wheezing was noted. CARDIOVASCULAR: There is a regular rate and rhythm without any murmurs gallops or rubs. ABDOMEN: Soft and nontender with normal bowel sounds. SKIN: Skin is clear with no lesions or rashes and otherwise unremarkable. NEUROLOGIC: Patient is alert and oriented x3. Cranial nerves II through XII are grossly intact. Motor and sensory are also intact. Normal speech, volume and content. Symmetrical smile. MUSCULOSKELETAL: Normal extremities with adequate strength and full range of motion. No lower extremity swelling or edema. No calf tenderness. LYMPHATICS: No significant lymphadenopathy is noted PSYCHIATRIC: Normal psychiatric evaluation. Limitations: no limitations Course Vital Signs 12/05/23 12/05/23 12/05/23 07:19 08:35 09:27 Temperature 98.1 F 98.2 F Pulse Rate 52 L 44 L 45 L Respiratory 20 15 16 Rate Blood Pressure 217/83 195/73 154/66 O2 Sat by Pulse 99 96 97 Oximetry Medical Decision Making - Medical Decision Making EKG shows a sinus bradycardia 48 bpm GA interval is 186 QRS is 98 QT interval is 458 QTc is 424. Patient's EKG shows no ST segment ovation or depression. Patient does have Q waves in leads II and III Was pt. sent in by a medical professional or institution (, PA, DRAY DRIVER, urgent care, hospital, or custodial...) When possible be specific @ -No Did you speak to anyone other than the patient for history (EMS, parent, family, police, friend...)? What history was obtained from this source @ -No Did you review nursing and triage notes (agree or disagree)? Why? @ -I reviewed and agree with nursing and triage notes Were old charts reviewed (outside hosp., previous admission, EMS record, old EKG, old radiological studies, urgent care reports/EKG's, custodial records)? Report findings @ -No old charts were reviewed Differential Diagnosis (chest pain, altered mental status, abdominal pain women, abdominal pain men, vaginal bleeding, weakness, fever, dyspnea, syncope, headache, dizziness, GI bleed, back pain, seizure, CVA, palpatations, mental health, musculoskeletal)? @ -Differential Weakness: Hypoglycemia, shock, sepsis, hyponatremia, anemia, infection, [place], ETOH, adverse medicine reaction, overdose, stroke, this is not meant to be an all-inclusive list. EKG interpreted by me (3pts min.). @ -As above X-rays interpreted by me (1pt min.). @ -Chest x-ray shows no acute abnormality CT interpreted by me (1pt min.). @ -None done U/S interpreted by me (1pt. min.). @ -None done What testing was considered but not performed or refused? (CT, X-rays, U/S, labs)? Why? @ -None What meds were considered but not given or refused? Why? @ -None Did you discuss the management of the patient with other professionals (professionals i.e. , PA, DRAY DRIVER, lab, RT, psych nurse, social work associate, major donor coordinator, teacher, enforcement safety officer, welfare case worker)? Give summary @ -No Was smoking cessation discussed for >3mins.? @ -No Was critical care preformed (if so, how long)? @ -No Were there social determinants of health that impacted care today? How? (Homelessness, low income, unemployed, alcoholism, drug addiction, transportation, low edu. Level, literacy, decrease access to med. care, residential, rehab)? @ -No Was there de-escalation of care discussed even if they declined (Discuss DNR or withdrawal of care, Hospice)? DNR status @ -No What co-morbidities impacted this encounter? (DM, HTN, Smoking, COPD, CAD, Cancer, CVA, ARF, Chemo, Hep., AIDS, mental health diagnosis, sleep apnea, morbid obesity)? @ -None Was patient admitted / discharged? Hospital course, mention meds given and route, prescriptions, significant lab abnormalities, going to OR and other p ertinent info. @ -Patient was bradycardic in the 40s when I walked in the room the second time she was 42 beats a minute. I indicated to the patient that this might be the cause of some of her weakness I had her cut her metoprolol in half. Patient is going to follow-up with her primary medical care doctor Undiagnosed new problem with uncertain prognosis? @ -No Drug Therapy requiring intensive monitoring for toxicity (Heparin, Nitro, Insulin, Cardizem)? @ -No Were any procedures done? @ -No Diagnosis/symptom? @ -Bradycardia Acute, or Chronic, or Acute on Chronic? @ -Acute Uncomplicated (without systemic symptoms) or Complicated (systemic symptoms)? @ -Complicated Side effects of treatment? @ -No Exacerbation, Progression, or Severe Exacerbation? @ -No Poses a threat to life or bodily function? How? (Chest pain, [place], [place], pneumonia, PE, COPD, DKA, ARF, appy, cholecystitis, CVA, Diverticulitis, Homicidal, Suicidal, threat to staff... and all critical care pts) @ -No Diagnosis/symptom? @ -Weakness Acute, or Chronic, or Acute on Chronic? @ -Acute Uncomplicated (without systemic symptoms) or Complicated (systemic symptoms)? @ -Complicated Side effects of treatment? @ -None Exacerbation, Progression, or Severe Exacerbation] @ -No Poses a threat to life or bodily function? @ -No - Lab Data Result diagrams: 12/05/23 08:09 12/05/23 08:09 Lab Results 12/05/23 12/05/23 12/05/23 Range/Units 08:09 08:09 08:09 WBC 5.8 (3.8-10.6) k/uL RBC 4.76 (3.80-5.40) m/uL Hgb 13.3 (11.4-16.0) gm/dL Hct 41.1 (34.0-46.0) % MCV 86.5 (80.0-100.0) fL MCH 27.9 (25.0-35.0) pg MCHC 32.2 (31.0-37.0) g/dL RDW 13.2 (11.5-15.5) % Plt Count 286 (150-450) k/uL MPV 7.3 Neutrophils % 62 % Lymphocytes % 22 % Monocytes % 7 % Eosinophils % 5 % Basophils % 1 % Neutrophils # 3.6 (1.3-7.7) k/uL Lymphocytes # 1.3 (1.0-4.8) k/uL Monocytes # 0.4 (0-1.0) k/uL Eosinophils # 0.3 (0-0.7) k/uL Basophils # 0.1 (0-0.2) k/uL PT 10.5 (10.0-12.5) sec INR 0.9 (<1.2) APTT 26.2 (22.0-30.0) sec Sodium 133 L (137-145) mmol/L Potassium 4.5 (3.5-5.1) mmol/L Chloride 97 L (98-107) mmol/L Carbon Dioxide 32 H (22-30) mmol/L Anion Gap 4 mmol/L BUN 19 H (7-17) mg/dL Creatinine 1.06 H (0.52-1.04) mg/dL Est GFR (CKD-EPI)AfAm 56 (>60 ml/min/1.73 sqM) Est GFR (CKD-EPI)NonAf 49 (>60 ml/min/1.73 sqM) Glucose 100 H (74-99) mg/dL Plasma Lactic Acid Messi (0.7-2.0) mmol/L Calcium 9.2 (8.4-10.2) mg/dL Magnesium 2.2 (1.6-2.3) mg/dL Total Bilirubin 0.6 (0.2-1.3) mg/dL AST 21 (14-36) U/L ALT 16 (4-34) U/L Alkaline Phosphatase 110 (38-126) U/L Troponin I (0.000-0.034) ng/mL Total Protein 6.9 (6.3-8.2) g/dL Albumin 4.0 (3.5-5.0) g/dL Lipase 197 (23-300) U/L Urine Color Urine Appearance (Clear) Urine pH (5.0-8.0) Ur Specific [place] (1.001-1.035) Urine Protein (Negative) Urine Glucose (UA) (Negative) Urine Ketones (Negative) Urine Blood (Negative) Urine Nitrite (Negative) Urine Bilirubin (Negative) Urine Urobilinogen (<2.0) mg/dL Ur Leukocyte Esterase (Negative) 12/05/23 12/05/23 12/05/23 Range/Units 08:09 08:09 10:24 WBC (3.8-10.6) k/uL RBC (3.80-5.40) m/uL Hgb (11.4-16.0) gm/dL Hct (34.0-46.0) % MCV (80.0-100.0) fL MCH (25.0-35.0) pg MCHC (31.0-37.0) g/dL RDW (11.5-15.5) % Plt Count (150-450) k/uL MPV Neutrophils % % Lymphocytes % % Monocytes % % Eosinophils % % Basophils % % Neutrophils # (1.3-7.7) k/uL Lymphocytes # (1.0-4.8) k/uL Monocytes # (0-1.0) k/uL Eosinophils # (0-0.7) k/uL Basophils # (0-0.2) k/uL PT (10.0-12.5) sec INR (<1.2) APTT (22.0-30.0) sec Sodium (137-145) mmol/L Potassium (3.5-5.1) mmol/L Chloride (98-107) mmol/L Carbon Dioxide (22-30) mmol/L Anion Gap mmol/L BUN (7-17) mg/dL Creatinine (0.52-1.04) mg/dL Est GFR (CKD-EPI)AfAm (>60 ml/min/1.73 sqM) Est GFR (CKD-EPI)NonAf (>60 ml/min/1.73 sqM) Glucose (74-99) mg/dL Plasma Lactic Acid Messi 1.0 (0.7-2.0) mmol/L Calcium (8.4-10.2) mg/dL Magnesium (1.6-2.3) mg/dL Total Bilirubin (0.2-1.3) mg/dL AST (14-36) U/L ALT (4-34) U/L Alkaline Phosphatase (38-126) U/L Troponin I <0.012 (0.000-0.034) ng/mL Total Protein (6.3-8.2) g/dL Albumin (3.5-5.0) g/dL Lipase (23-300) U/L Urine Color Colorless Urine Appearance Clear (Clear) Urine pH 8.0 (5.0-8.0) Ur Specific [place] 1.008 (1.001-1.035) Urine Protein Negative (Negative) Urine Glucose (UA) Negative (Negative) Urine Ketones Negative (Negative) Urine Blood Negative (Negative) Urine Nitrite Negative (Negative) Urine Bilirubin Negative (Negative) Urine Urobilinogen <2.0 (<2.0) mg/dL Ur Leukocyte Esterase Negative (Negative) Disposition Clinical Impression: Weakness, Bradycardia Disposition: HOME SELF-CARE Condition: Good Instructions (If sedation given, give patient instructions): Bradycardia (ED) Additional Instructions: Patient should cut her metoprolol in half Is patient prescribed a controlled substance at d/c from ED?: No Referrals: Melissa Andrade DO [Primary Care Provider] - 1-2 days Time of Disposition: 11:37
[2023-12-05] MEDS: SODIUM CHLORIDE 0.9% 500 ML 500 ML IV STA (08:07)
[2023-12-05 08:19] LABS: Basophils # (A) 0.1 k/uL (0-0.2); Basophils % (A) 1 %; Eosinophils # (A) 0.3 k/uL (0-0.7); Eosinophils % (A) 5 %; HCT 41.1 % (34.0-46.0); HGB 13.3 gm/dL (11.4-16.0); Lymphocytes # (A) 1.3 k/uL (1.0-4.8); Lymphocytes % (A) 22 %; MCH 27.9 pg (25.0-35.0); MCHC 32.2 g/dL (31.0-37.0); MCV 86.5 fL (80.0-100.0); Mean Platelet Volume 7.3; Monocytes # (A) 0.4 k/uL (0-1.0); Monocytes % (A) 7 %; Neutrophils # (A) 3.6 k/uL (1.3-7.7); Neutrophils % (A) 62 %; Platelet Count 286 k/uL (150-450); RBC 4.76 m/uL (3.80-5.40); RDW 13.2 % (11.5-15.5); WBC 5.8 k/uL (3.8-10.6)
[2023-12-05 08:29] LABS: ALT 16 U/L (4-34); AST 21 U/L (14-36); African American GFR (CKD) 56 (>60 ml/min/1.73 sqM); Alkaline Phosphatase 110 U/L (38-126); Anion Gap 4 mmol/L; Blood Urea Nitrogen 19 mg/dL (7-17); Calcium 9.2 mg/dL (8.4-10.2); Carbon Dioxide 32 mmol/L (22-30); Chloride 97 mmol/L (98-107); Glucose 100 mg/dL (74-99); Lipase 197 U/L (23-300); Magnesium 2.2 mg/dL (1.6-2.3); Non-African American GFR(CKD) 49 (>60 ml/min/1.73 sqM); Potassium 4.5 mmol/L (3.5-5.1); Sodium 133 mmol/L (137-145); Total Bilirubin 0.6 mg/dL (0.2-1.3); Total Protein 6.9 g/dL (6.3-8.2)
[2023-12-05 08:32] LABS: INR 0.9 (<1.2); Partial Thromboplastin Time 26.2 sec (22.0-30.0); Prothrombin Time 10.5 sec (10.0-12.5)
--- NOTE | 2023-12-05 08:35 | XR ---
EXAMINATION TYPE: XR chest 2V DATE OF EXAM: 12/05/2023 8:26 AM CLINICAL INDICATION:Female, 83 years old with history of Weakness; COMPARISON: Chest radiographs from 07/26/2023 TECHNIQUE: XR chest 2V Frontal and lateral views of the chest. FINDINGS: Lungs/Pleura: There is no evidence of pleural effusion, focal consolidation, or pneumothorax. Pulmonary vascularity: Unremarkable. Heart/mediastinum: Cardiomediastinal silhouette is unremarkable. Atherosclerotic calcifications are seen in the aorta. Musculoskeletal: No acute osseous pathology. IMPRESSION: No acute cardiopulmonary disease/process.
[2023-12-05 09:27] VITALS: TEMP 98.2
[2023-12-05 10:48] LABS: Appearance,Urine Clear (Clear); Bilirubin,Urine Negative (Negative); Blood,Urine Negative (Negative); Color,Urine Colorless; Glucose,Urine (UA) Negative (Negative); Ketones,Urine Negative (Negative); Leukocyte Esterase,Urine Negative (Negative); Nitrite,Urine Negative (Negative); Protein,Urine Negative (Negative); Specific Gravity,Urine 1.008 (1.001-1.035); Urobilinogen,Urine <2.0 mg/dL (<2.0)
[2023-12-05 12:24] VITALS: BP 181/81; PULSE 50; RESP 18
== END 2023-12-05 12:26 | disposition home or self-care (01) ==
LOC: EC 07:11
DX: R53.1 Weakness (principal); R00.1 Bradycardia, unspecified; Z88.8 Allergy status to other drugs, medicaments and biological substances
CPT/HCPCS: 36415; 71046; 80053; 81003; 83605; 83690; 83735; 84484; 85025; 85610; 85730; 93005; 96360; 96361; 99284

== ENCOUNTER 2023-12-11 18:54 | Observation (INO) | payer MEDICARE ==
--- NOTE | 2023-12-11 19:29 | ED ---
General Adult HPI - General Chief complaint: Headache Stated complaint: Hypertension Time Seen by Provider: 12/11/23 19:19 Source: patient, EMS Mode of arrival: EMS Limitations: no limitations - History of Present Illness Initial comments: Dictation was produced using [employer] dictation software. please excuse any grammatical, word or spelling errors. Chief Complaint: 83-year-old female with hypertension and headache History of Present Illness: Patient is 83-year-old female she has past medical history of hypertension. Patient takes multiple hypertension medications including hydralazine, losartan and and hydrochlorothiazide. Patient's blood pressure is usually around 150. She checks her blood pressure once daily at around early afternoon. She states that she checked it this afternoon and it was approximately 180. Patient for the last 4 to 5 hours has had a mild headache. She states that it is not thunderclap not the worst headache of her life. She reports that she does have history of headaches feels like her usual headaches. Denies any vision loss. No numbness tingling paresthesias to extremities. The ROS documented in this emergency department record has been reviewed and confirmed by me. Those systems with pertinent positive or negative responses have been documented in the HPI. All other systems are other negative and/or noncontributory. - Related Data Home Medications Medication Instructions Recorded Confirmed Losartan Potassium 25 mg PO DAILY 10/22/16 12/21/22 Omeprazole [PriLOSEC] 20 mg PO DAILY@1200 10/22/16 12/21/22 Multivitamins, Thera [Multivitamin 1 tab PO DAILY 12/21/22 12/21/22 (formulary)] Previous Rx's Medication Instructions Recorded Cephalexin [Keflex] 500 mg PO Q6HR 7 Days #28 cap 12/21/22 Allergies Allergy/AdvReac Type Severity Reaction Status Date / Time prednisone AdvReac Rapid Verified 12/11/23 19:13 Heart Rate/Itching/Cough steroids AdvReac Rapid Uncoded 12/11/23 19:13 Heart Rate/Itching/Cough Review of Systems ROS Statement: Those systems with pertinent positive or pertinent negative responses have been documented in the HPI. ROS Other: All systems not noted in ROS Statement are negative. Past Medical History Past Medical History: GERD/Reflux, Hypertension History of Any Multi-Drug Resistant Organisms: None Reported Past Surgical History: Hysterectomy, Orthopedic Surgery Past Psychological History: No Psychological Hx Reported Smoking Status: Never smoker Past Alcohol Use History: Occasional Past Drug Use History: None Reported General Exam - General Exam Comments Initial Comments: PHYSICAL EXAM: General Impression: Alert and oriented x3, not in acute distress HEENT: Normocephalic atraumatic, extra-ocular movements intact, pupils equal and reactive to light bilaterally, mucous membranes moist. Cardiovascular: Heart regular rate and rhythm Chest: Able to complete full sentences, no retractions, no tachypnea Abdomen: abdomen soft, non-tender, non-distended, no organomegaly Musculoskeletal: Pulses present and equal in all extremities, no peripheral edema Motor: no focal deficits noted Neurological: CN II-XII grossly intact, no focal motor or sensory deficits noted Skin: Intact with no visualized rashes Psych: Normal affect and mood Limitations: no limitations Course Vital Signs 12/11/23 12/11/23 19:06 20:24 Temperature 98.2 F Pulse Rate 53 L 68 Respiratory 18 18 Rate Blood Pressure 208/76 162/65 O2 Sat by Pulse 96 97 Oximetry Medical Decision Making - Medical Decision Making Was pt. sent in by a medical professional or institution (, PA, INSULATION APPLICATOR, urgent care, hospital, or correction...) When possible be specific @ -No Did you speak to anyone other than the patient for history (EMS, parent, family, police, friend...)? What history was obtained from this source @ -No Did you review nursing and triage notes (agree or disagree)? Why? @ -I reviewed and agree with nursing and triage notes Were old charts reviewed (outside hosp., previous admission, EMS record, old EKG, old radiological studies, urgent care reports/EKG's, correction records)? Report findings @ -No old charts were reviewed Differential Diagnosis (chest pain, altered mental status, abdominal pain women, abdominal pain men, vaginal bleeding, musculoskeletal, weakness, fever, dyspnea, syncope, headache, dizziness, GI bleed, back pain, seizure, CVA, palpatations, mental health)? @ -Differential Headache: Migraine, tension, cluster, carbon monoxide, central venous thrombosis, pension karma temporal arteritis, acute closure glaucoma, intercranial hemorrhage, mastoiditis, sinusitis, head injury, this is not meant to be an all-inclusive list. EKG interpreted by me (3pts min.). @ -My EKG interpretation: Ventricular rate 48, sinus bradycardia,. 195, cures 92, QTc 393. No AK prolongation, no QTC prolongation, no ST or T-wave changes noted. EKG compared to default value showing no changes. Overall, this EKG is unremarkable X-rays interpreted by me (1pt min.). @ -None done CT interpreted by me (1pt min.). @ -CT scan the brain is on unremarkable for any acute processes U/S interpreted by me (1pt. min.). @ -None done What testing was considered but not performed or refused? (CT, X-rays, U/S, labs)? Why? @ -None What meds were considered but not given or refused? Why? @ -None Was smoking cessation discussed for >3mins.? @ -No Were there social determinants of health that impacted care today? How? (Homelessness, low income, unemployed, alcoholism, drug addiction, transportation, low edu. Level, literacy, decrease access to med. care, group home, rehab)? @ -No Was there de-escalation of care discussed even if they declined (Discuss DNR or withdrawal of care, Hospice)? DNR status @ -No What co-morbidities impacted this encounter? (DM, HTN, Smoking, COPD, CAD, Cancer, CVA, ARF, Chemo, Hep., AIDS, mental health diagnosis, sleep apnea, morbid obesity)? @ -None Was patient admitted / discharged? Hospital course, mention meds given and route, prescriptions, significant lab abnormalities, going to OR and other pertinent info. @ -83-year-old female presents emergency department with hypertension and headache. Vital signs shows blood pressure 208/76. EMS reports that patient's blood pressure was 240/90 manual. Patient well-appearing. She states that her headache is not thunderclap and not the worst headache of her life. Patient reports history of headaches. Patient well-appearing at the bedside in no acute distress. Patient CT scan ordered. Patient CT scan was performed within 6 shailesh rs of patient's reported symptoms. CT scan is negative for any intracranial bleed. Patient given hydralazine. Will be admitted observation for symptomatic hypertension. Did you discuss the management of the patient with other professionals (professionals i.e. , PA, INSULATION APPLICATOR, lab, RT, psych nurse, psychologist social, eyewear manufacturing supervisor, teacher, prison officer, child support case officer)? Give summary @ -Discussed with hospitalist for admission Was critical care preformed (if so, how long)? @ -No Undiagnosed new problem with uncertain prognosis? @ -No Drug Therapy requiring intensive monitoring for toxicity (Heparin, Nitro, Insulin, Cardizem)? @ -No Were any procedures done? @ -No Diagnosis/symptom? Acute, or Chronic, or Acute on Chronic? Uncomplicated (without systemic symptoms) or Complicated (systemic symptoms)? @ -Symptomatic hypertension Side effects of treatment? @ -No Exacerbation, Progression, or Severe Exacerbation? @ -No Poses a threat to life or bodily function? How? (Chest pain, [place], [place], pneumonia, PE, COPD, DKA, ARF, appy, cholecystitis, CVA, Diverticulitis, Homicidal, Suicidal, threat to staff... and all critical care pts) @ -yes - Lab Data Result diagrams: 12/11/23 19:34 12/11/23 19:34 Lab Results 12/11/23 12/11/23 Range/Units 19:34 19:34 WBC 7.5 (3.8-10.6) k/uL RBC 4.30 (3.80-5.40) m/uL Hgb 12.0 (11.4-16.0) gm/dL Hct 37.1 (34.0-46.0) % MCV 86.3 (80.0-100.0) fL MCH 27.9 (25.0-35.0) pg MCHC 32.3 (31.0-37.0) g/dL RDW 13.4 (11.5-15.5) % Plt Count 282 (150-450) k/uL MPV 7.3 Neutrophils % 63 % Lymphocytes % 23 % Monocytes % 7 % Eosinophils % 4 % Basophils % 1 % Neutrophils # 4.7 (1.3-7.7) k/uL Lymphocytes # 1.7 (1.0-4.8) k/uL Monocytes # 0.5 (0-1.0) k/uL Eosinophils # 0.3 (0-0.7) k/uL Basophils # 0.1 (0-0.2) k/uL Sodium 132 L (137-145) mmol/L Potassium 3.9 (3.5-5.1) mmol/L Chloride 99 (98-107) mmol/L Carbon Dioxide 26 (22-30) mmol/L Anion Gap 7 mmol/L BUN 12 (7-17) mg/dL Creatinine 0.84 (0.52-1.04) mg/dL Est GFR (CKD-EPI)AfAm 74 (>60 ml/min/1.73 sqM) Est GFR (CKD-EPI)NonAf 64 (>60 ml/min/1.73 sqM) Glucose 98 (74-99) mg/dL Calcium 10.2 (8.4-10.2) mg/dL Disposition Clinical Impression: Hypertension without cardiac signs or symptoms Disposition: ADMITTED IP TO THIS HOSP Condition: Fair Referrals: Melissa Andrade DO [Primary Care Provider] - 1-2 days Decision Time: 20:40
[2023-12-11] MEDS: hydrALAZINE HCL 20 MG/ML 1 ML VIAL IVP STA (19:40)
[2023-12-11 19:42] LABS: Basophils # (A) 0.1 k/uL (0-0.2); Basophils % (A) 1 %; Eosinophils # (A) 0.3 k/uL (0-0.7); Eosinophils % (A) 4 %; HCT 37.1 % (34.0-46.0); Lymphocytes # (A) 1.7 k/uL (1.0-4.8); Lymphocytes % (A) 23 %; MCH 27.9 pg (25.0-35.0); MCHC 32.3 g/dL (31.0-37.0); MCV 86.3 fL (80.0-100.0); Mean Platelet Volume 7.3; Monocytes # (A) 0.5 k/uL (0-1.0); Monocytes % (A) 7 %; Neutrophils # (A) 4.7 k/uL (1.3-7.7); Neutrophils % (A) 63 %; Platelet Count 282 k/uL (150-450); RDW 13.4 % (11.5-15.5); WBC 7.5 k/uL (3.8-10.6)
[2023-12-11 19:55] LABS: African American GFR (CKD) 74 (>60 ml/min/1.73 sqM); Anion Gap 7 mmol/L; Blood Urea Nitrogen 12 mg/dL (7-17); Calcium 10.2 mg/dL (8.4-10.2); Carbon Dioxide 26 mmol/L (22-30); Chloride 99 mmol/L (98-107); Glucose 98 mg/dL (74-99); Non-African American GFR(CKD) 64 (>60 ml/min/1.73 sqM); Potassium 3.9 mmol/L (3.5-5.1); Sodium 132 mmol/L (137-145)
--- NOTE | 2023-12-11 20:22 | CT ---
EXAMINATION TYPE: CT brain wo con DATE OF EXAM: 12/11/2023 COMPARISON: None HISTORY: headache CT DLP: 1199.[address] of the brain was performed. The ventricles, basal cisterns and sulci overlying the cerebral convexities demonstrate mild enlargem ent. There is no evidence for intracranial hemorrhage or sulcal effacement. There is decreased attenuation about the periventricular white matter and deep white matter of both c erebral hemispheres, compatible with chronic small vessel ischemia. Differential diagnosis does inclu de demyelination. No mass effects are seen.No midline shift. Osseous calvarium is intact. If symptoms persist consider MRI. IMPRESSION: 1. Age related atrophic and chronic small vessel ischemic change without acute intracranial process s een at this time.
[2023-12-11] MEDS ORDERED: NALOXONE 0.4 MG/ML 1 ML VIAL IV PRN (20:41)
[2023-12-11] MEDS: SODIUM CHLORIDE 0.9% 1,000 ML IV STA (21:25)
[2023-12-11] MEDS: SODIUM CHLORIDE 0.9% 1,000 ML IV SCH (21:26)
[2023-12-11] MEDS: KETOROLAC 15 MG/ML 1 ML VIAL IVP STA (21:28)
[2023-12-11] MEDS: ONDANSETRON 4 MG/2 ML VIAL IVP STA (21:29)
[2023-12-11] MEDS: diphenhydrAMINE 50 MG/ML 1 ML VIAL IVP STA (21:32)
[2023-12-11] MEDS: hydrALAZINE HCL 25 MG TAB PO SCH (21:34)
--- NOTE | 2023-12-11 22:49 | P.HPIM ---
History of Present Illness H&P Date: 12/11/23 Chief Complaint: Headache/elevated blood pressure 83-year-old female she has past medical history of hypertension, gastroesophageal reflux disease. Patient takes multiple hypertension medications including hydralazine, losartan and and hydrochlorothiazide. Patient's blood pressure is usually around 150. She checks her blood pressure once daily at around early afternoon. She states that she checked it this afternoon and it was approximately 180. Patient for the last 4 to 5 hours has had a mild headache. She states that it is not thunderclap not the worst headache of her life. She reports that she does have history of headaches feels like her usual headaches. Denies any vision loss. No numbness tingling paresthesias to extremities. CT of the brain completed in ED is negative for any acute process EKG reveals ventricular rate of 48, sinus bradycardia, no ST or T wave changes Blood work completed in ED reveals a WBC of 7.5, hemoglobin of 12, platelet coun t of 282, sodium 132, potassium 3.9, BUNs/creatinine of 12/0.84 and blood glucose of 98, troponin of less than 0.012 Review of Systems REVIEW OF SYSTEMS: CONSTITUTIONAL: No fever, no malaise, no fatigue. HEENT: No recent visual problems or hearing problems. Denied any sore throat. CARDIOVASCULAR: No chest pain, orthopnea, PND, no palpitations, no syncope. PULMONARY: No shortness of breath, no cough, no hemoptysis. GASTROINTESTINAL: No diarrhea, no nausea, no vomiting, no abdominal pain. NEUROLOGICAL: No headaches, no weakness, no numbness. HEMATOLOGICAL: Denies any bleeding or petechiae. GENITOURINARY: Denies any burning micturition, frequency, or urgency. MUSCULOSKELETAL/RHEUMATOLOGICAL: Denies any joint pain, swelling, or any muscle pain. ENDOCRINE: Denies any polyuria or polydipsia. The rest of the 14-point review of systems is negative. Past Medical History Past Medical History: GERD/Reflux, Hypertension History of Any Multi-Drug Resistant Organisms: None Reported Past Surgical History: Hysterectomy, Orthopedic Surgery Past Psychological History: No Psychological Hx Reported Smoking Status: Never smoker Past Alcohol Use History: Occasional Past Drug Use History: None Reported Medications and Allergies Home Medications Medication Instructions Recorded Confirmed Type Losartan Potassium 25 mg PO DAILY 10/22/16 12/21/22 History Omeprazole [PriLOSEC] 20 mg PO DAILY@1200 10/22/16 12/21/22 History Cephalexin [Keflex] 500 mg PO Q6HR 7 Days #28 cap 12/21/22 Rx Multivitamins, Thera [Multivitamin 1 tab PO DAILY 12/21/22 12/21/22 History (formulary)] Allergies Allergy/AdvReac Type Severity Reaction Status Date / Time prednisone AdvReac Rapid Verified 12/11/23 19:13 Heart Rate/Itching/Cough steroids AdvReac Rapid Uncoded 12/11/23 19:13 Heart Rate/Itching/Cough Physical Exam Vitals: Vital Signs Temp Pulse Resp BP Pulse Ox 12/11/23 20:24 68 18 162/65 97 12/11/23 19:06 98.2 F 53 L 18 208/76 96 Intake and Output 12/11/23 12/11/23 12/11/23 06:59 14:59 22:59 Other: Weight 61.235 kg General appearance: Present: average body habitus, cooperative, no acute distress Eyes: Present: anicteric sclerae, EOMI, PERRLA, normal appearance Neck: Present: normal ROM. Absent: lymphadenopathy, rigidity, thyromegaly Carotids: negative: bruit present Thyroid: bilateral: normal size, negative: enlarged, nodule Respiratory: bilateral: CTA, negative: rales, rhonchi, wheezing Cardiovascular: regular: normal: S1, S2 General gastrointestinal: Present: normal bowel sounds, soft. Absent: distended, organomegaly, tenderness Genitourinary Comment(s): deferred Integumentary: Present: normal turgor. Absent: jaundiced, rash, ulcer Neurologic: Present: CNII-XII intact. Absent: focal deficits Musculoskeletal: Present: gait normal, strength equal bilaterally Psychiatric: Present: A&O x's 3, appropriate affect, intact judgment & insight Results CBC & Chem 7: 12/11/23 19:34 12/11/23 19:34 Labs: Abnormal Lab Results - Last 24 Hours (Table) 12/11/23 Range/Units 19:34 Sodium 132 L (137-145) mmol/L Assessment and Plan Assessment: 1. Accelerated hypertension --Patient takes hydralazine 25 mg 3 times daily, losartan 25 mg daily -- We will add hydralazine 10 mg IV every 6 hours as needed till blood pressure control is improved -Plan to monitor blood pressure closely with changes in medications as needed 2. Mild hyponatremia; will monitor electrolytes with plans to start IV fluids if sodium levels continue to drop 3. Gastroesophageal reflux disease; Protonix 40 mg daily 4. Intractable headache; likely related to accelerated hypertension; we will treat symptomatically DVT prophylaxis; SCDs/heparin CODE STATUS; full code
[2023-12-12] MEDS: MULTIVITAMINS, THERA 1 EACH TAB PO SCH (08:24)
[2023-12-12] MEDS: LOSARTAN 25 MG TAB PO SCH (08:24)
[2023-12-12 09:25] LABS: Blood Urea Nitrogen 10.6 mg/dL (9.0-27.0); Calcium 9.8 mg/dL (8.7-10.3); Chloride 99 mmol/L (96-109); Glucose 101 mg/dL (70-110); Potassium 4.8 mmol/L (3.5-5.5); Sodium 135 mmol/L (135-145)
[2023-12-12 09:35] LABS: Basophils # (A) 0.05 X 10*3/uL (0.00-0.10); Basophils % (A) 0.5 %; Eosinophils # (A) 0.21 X 10*3/uL (0.04-0.35); Eosinophils % (A) 2.3 %; HCT 36.9 % (37.2-46.3); HGB 11.6 g/dL (12.0-15.0); Lymphocytes % (A) 17.2 %; MCH 27.4 pg (27.0-32.0); MCHC 31.4 g/dL (32.0-37.0); Mean Platelet Volume 9.6 FL (9.5-12.2); Monocytes # (A) 0.93 X 10*3/uL (0.20-1.00); NRBC Per 100 WBC 0 X 10*3/uL (0.00-0.01); Neutrophils # (A) 6.49 X 10*3/uL (1.80-7.70); Neutrophils % (A) 69.9 %; Platelet Count 274 X 10*3/uL (140-440); RBC 4.24 X 10*6/uL (4.10-5.20); WBC 9.29 X 10*3/uL (4.50-10.00)
[2023-12-12] MEDS: PANTOPRAZOLE 40 MG TABLET PO SCH (11:35)
[2023-12-13 08:48] VITALS: RESP 16; TEMP 98.1
[2023-12-13 10:47] LABS: Basophils # (A) 0.04 X 10*3/uL (0.00-0.10); Basophils % (A) 0.5 %; Eosinophils # (A) 0.23 X 10*3/uL (0.04-0.35); Eosinophils % (A) 2.9 %; HCT 38.3 % (37.2-46.3); Lymphocytes # (A) 1.48 X 10*3/uL (0.90-5.00); Lymphocytes % (A) 18.7 %; MCH 27.8 pg (27.0-32.0); MCHC 31.3 g/dL (32.0-37.0); MCV 88.7 FL (80.0-97.0); Mean Platelet Volume 9.9 FL (9.5-12.2); Monocytes # (A) 0.56 X 10*3/uL (0.20-1.00); Monocytes % (A) 7.1 %; NRBC Per 100 WBC 0 X 10*3/uL (0.00-0.01); Neutrophils # (A) 5.57 X 10*3/uL (1.80-7.70); Neutrophils % (A) 70.5 %; Platelet Count 320 X 10*3/uL (140-440); RBC 4.32 X 10*6/uL (4.10-5.20); RDW 14.1 % (11.5-14.5)
[2023-12-13 10:55] LABS: Blood Urea Nitrogen 8.2 mg/dL (9.0-27.0); Carbon Dioxide 25.1 mmol/L (21.6-31.8); Chloride 102 mmol/L (96-109); Glucose 93 mg/dL (70-110); Potassium 4.8 mmol/L (3.5-5.5); Sodium 137 mmol/L (135-145)
[2023-12-13 11:17] VITALS: BP 143/62; PULSE 66
--- NOTE | 2023-12-13 13:58 | P.PN ---
Subjective Progress Note Date: 12/12/23 83-year-old female she has past medical history of hypertension, gastroesophageal reflux disease. Patient takes multiple hypertension medications including hydralazine, losartan and and hydrochlorothiazide. Patient's blood pressure is usually around 150. She checks her blood pressure once daily at around early afternoon. She states that she checked it this afternoon and it was approximately 180. Patient for the last 4 to 5 hours has had a mild headache. She states that it is not thunderclap not the worst headache of her life. She reports that she does have history of headaches feels like her usual headaches. Denies any vision loss. No numbness tingling paresthesias to extremities. CT of the brain completed in ED is negative for any acute process EKG reveals ventricular rate of 48, sinus bradycardia, no ST or T wave changes Blood work completed in ED reveals a WBC of 7.5, hemoglobin of 12, platelet count of 282, sodium 132, potassium 3.9, BUNs/creatinine of 12/0.84 and blood glucose of 98, troponin of less than 0.012 24-hour interval change 12/12/2023 --Patient is seen and evaluated in room at bedside; remains in ER aspirin overflow to general medical floor with telemetry -Reports headache has resolved completely and expresses no need for neurology ev aluation; patient reports main concern for coming to the emergency room was uncontrolled blood pressure -- Blood pressure readings were reviewed for the last 24 hours and discussed with patient in great detail; remains stable with further monitoring and changes as an outpatient -- Patient reports high concern for discharge reporting blood pressure escalating every evening and reports she has seen PCP multiple times for this concern --We will continue to monitor patient for another 24 hours with possible discharge in next 24 hours if blood pressure remains stable Objective - Vital Signs Vital signs: Vital Signs Temp 97.7 F 12/12/23 07:46 Pulse 53 L 12/12/23 10:19 Resp 16 12/12/23 10:19 BP 144/65 12/12/23 10:19 Pulse Ox 96 12/12/23 10:19 FiO2 Intake & Output 12/11/23 12/12/23 12/12/23 18:59 06:59 18:59 Weight 61.235 kg - Exam - Constitutional General appearance: Present: average body habitus, cooperative, no acute distress - EENT Eyes: Present: anicteric sclerae, EOMI, PERRLA, normal appearance ENT: Present: hearing grossly normal, normal oropharynx Ears: bilateral: normal - Neck Neck: Present: normal ROM. Absent: lymphadenopathy, rigidity, thyromegaly Carotids: negative: bruit present Thyroid: bilateral: normal size, negative: enlarged, nodule - Respiratory Respiratory: bilateral: CTA, negative: rales, rhonchi, wheezing - Cardiovascular Rhythm: regular Heart sounds: normal: S1, S2 Abnormal Heart Sounds: Absent: systolic murmur, diastolic murmur - Gastrointestinal General gastrointestinal: Present: normal bowel sounds, soft. Absent: distended, organomegaly, tenderness - Genitourinary Genitourinary Comment(s): deferred - Integumentary Integumentary: Present: normal turgor. Absent: jaundiced, rash, ulcer - Neurologic Neurologic: Present: CNII-XII intact. Absent: focal deficits - Musculoskeletal Musculoskeletal: Present: gait normal, strength equal bilaterally - Psychiatric Psychiatric: Present: A&O x's 3, appropriate affect, intact judgment & insight - Labs CBC & Chem 7: 12/13/23 06:31 12/13/23 06:31 Labs: Abnormal Lab Results - Last 24 Hours (Table) 12/11/23 12/12/23 12/12/23 Range/Units 19:34 05:44 05:44 Hgb 11.6 L (12.0-15.0) g/dL Hct 36.9 L (37.2-46.3) % MCHC 31.4 L (32.0-37.0) g/dL Sodium 132 L (137-145) mmol/L Est GFR (CKD-EPI) 56 L (>=60) BUN/Creatinine Ratio 10.60 L (12.00-20.00) Ratio Assessment and Plan Assessment: 1. Accelerated hypertension --Patient takes hydralazine 25 mg 3 times daily, losartan 25 mg daily -- We will add hydralazine 10 mg IV every 6 hours as needed till blood pressure control is improved -Plan to monitor blood pressure closely with changes in medications as needed 2. Mild hyponatremia; will monitor electrolytes with plans to start IV fluids if sodium levels continue to drop 3. Gastroesophageal reflux disease; Protonix 40 mg daily 4. Intractable headache; likely related to accelerated hypertension; we will treat symptomatically DVT prophylaxis; SCDs/heparin CODE STATUS; full code
--- NOTE | 2023-12-14 14:28 | P.DS ---
Providers Date of admission: 12/11/23 20:41 Expected date of discharge: 12/13/23 Attending physician: Neymar Blum MD Primary care physician: Melissa Andrade [facility] Course: Final Diagnoses: Accelerated hypertension, controlled Hyponatremia, mild, resolved Gastroesophageal reflux disease Hospital course: This is an 83-year-old female with past medical history of hypertension, gastroesophageal reflux disease. Patient takes multiple hypertension medications including hydralazine, losartan and and hydrochlorothiazide. Patient's blood pressure is usually around 150. She checks her blood pressure once daily at around early afternoon. She states that she checked it this afternoon and it was approximately 180. Patient for the last 4 to 5 hours has had a mild headache. She states that it is not thunderclap not the worst headache of her life. She reports that she does have history of headaches feels like her usual headaches. Denies any vision loss. No numbness tingling paresthesias to extremities. CT of the brain completed in ED is negative for any acute process EKG reveals ventricular rate of 48, sinus bradycardia, no ST or T wave changes Blood work completed in ED reveals a WBC of 7.5, hemoglobin of 12, platelet count of 282, sodium 132, potassium 3.9, BUNs/creatinine of 12/0.84 and blood glucose of 98, troponin of less than 0.012 24-hour interval change 12/12/2023 --Patient is seen and evaluated in room at bedside; remains in ER aspirin overflow to general medical floor with telemetry -Reports headache has resolved completely and expresses no need for neurology evaluation; patient reports main concern for coming to the emergency room was uncontrolled blood pressure -- Blood pressure readings were reviewed for the last 24 hours and discussed with patient in great detail; remains stable with further monitoring and changes as an outpatient -- Patient reports high concern for discharge reporting blood pressure escalating every evening and reports she has seen PCP multiple times for this concern --We will continue to monitor patient for another 24 hours with possible discharge in next 24 hours if blood pressure remains stable Significant clinical improvement. Antihypertensives further adjusted. Blood pressures controlled. Denies chest pain, palpitations or shortness of breath. Denies headache, denies lightheadedness dizziness or focal deficits. Patient is scheduled to follow-up with Dr. Romero in 1 week. Denies nausea, vomiting or diarrhea. Patient will be discharged home today in a stable condition with guarded prognosis. The impression and plan of care has been dictated as directed. : I performed a history and examination of this patient, discussed the same with the dictator. I agree with the dictator's note ,documented as a scribe. Any additional findings or plans will be noted. Patient Condition at Discharge: Stable Plan - Discharge Summary New Discharge Prescriptions: New Losartan [Cozaar] 100 mg PO DAILY #60 tab hydrALAZINE HCL [Apresoline] 25 mg PO BID #50 tab Famotidine [Pepcid] 20 mg PO DAILY #30 tablet Discontinued hydrALAZINE HCL [Apresoline] 10 mg PO BID Losartan/Hydrochlorothiazide [Hyzaar 100-25 Tablet] 1 tab PO DAILY Discharge Medication List Famotidine [Pepcid] 20 mg PO DAILY #30 tablet 12/13/23 [Rx] Losartan [Cozaar] 100 mg PO DAILY #60 tab 12/13/23 [Rx] hydrALAZINE HCL [Apresoline] 25 mg PO BID #50 tab 12/13/23 [Rx] Follow up Appointment(s)/Referral(s): Neymar Blum MD [STAFF PHYSICIAN] - 3 Days Juan Romero DO [STAFF PHYSICIAN] - 1 Week (12/17 AT 8:15AM) Patient Instructions/Handouts: Hypertension (DC), Hypertension (GEN) Activity/Diet/Wound Care/Special Instructions: FOLLOW UP DIRECTED, SOONER FOR WORSENING SYMPTOMS, PROBLEMS OR CONCERNS. CONTINUE TO TAKE BLOOD PRESSURE THREE TIMES A DAY AND KEEP DIARY Discharge Disposition: HOME SELF-CARE
== END 2023-12-13 11:45 | disposition home or self-care (01) ==
LOC: EC 18:54 → 6NMEDSUR 20:41
PROVIDERS: ADMIT Family Medicine; ATTEND Family Medicine
DX: I10 Essential (primary) hypertension (principal); K21.9 Gastro-esophageal reflux disease without esophagitis; E87.1 Hypo-osmolality and hyponatremia; R51.9 Headache, unspecified; Z79.899 Other long term (current) drug therapy
CPT/HCPCS: 96374; 96375; 99285; 36415; 93005; 80048 ×3; 85025 ×3; 70450; G0378 ×3; J0360; J1200; J2405; J1885

== ENCOUNTER → 2024-11-03 | Outpatient (CLI) | payer MEDICARE ==
--- NOTE | 2024-11-03 10:28 | MM ---
Reason for Exam: Screening (asymptomatic). Last mammogram was performed 1 year(s) and 10 month(s) ago. Patient History: Menarche at age 12. First Full-Term at age 21. Left ovary removed at age 47. Right ovary removed at age 47. Hysterectomy at age 47. Postmenopausal. Risk Values: Anitha 5 year model risk: 1.3%. NCI Lifetime model risk: 1.4%. Prior Study Comparison: 11/14/2020 Bilateral Screening Mammogram, [facility]. 11/28/2021 Bilateral MG 3D screening mammo w/cad, [facility]. 12/29/2022 Bilateral MG 3D screening mammo w/cad, [facility]. Tissue Density: There are scattered areas of fibroglandular density. Findings: Analyzed By CAD. Benign appearing vascular calcifications bilaterally are redemonstrated. There is no suspicious group of microcalcifications or new suspicious mass in either breast. Overall Assessment: Negative, BI-RAD 1 Management: Screening Mammogram of both breasts in 1 year. . Patient should continue monthly self-breast exams. A clinical breast exam by your physician is recommended on an annual basis. This exam should not preclude additional follow-up of suspicious palpable abnormalities. Note on Anitha scores and lifetime risk: 1. A Anitha score greater than 3% is considered moderate risk. If this is the case, consider specialist referral to assess eligibility for a risk reducing agent. 2. If overall lifetime risk for the development of breast cancer is 20% or higher, the patient may qualify for future screening with alternating mammogram and breast MRI. [facility], , 11/03/2024 10:25 AM. Electronically signed and approved by: Mikael Garcia M.D.
== END | disposition home or self-care (01) ==
LOC: RADMAMWWP 09:13
PROVIDERS: ATTEND Family Medicine
DX: Z12.31 Encounter for screening mammogram for malignant neoplasm of breast (principal); R92.323 Mammographic fibroglandular density, bilateral breasts; R92.1 Mammographic calcification found on diagnostic imaging of breast; Z78.0 Asymptomatic menopausal state
CPT/HCPCS: 77063; 77067

== ENCOUNTER → 2024-12-19 | Outpatient (CLI) | payer MEDICARE ==
--- NOTE | 2024-12-19 10:03 | XR ---
EXAMINATION TYPE: XR chest 2V DATE OF EXAM: 12/19/2024 9:12 AM COMPARISON: 12/05/2023 CLINICAL INDICATION: Female, 84 years old with history of H20.12,H59.032,H21.563PUPILLARY ABNORMALITY , BILAT: Shortness of breath TECHNIQUE: Single view chest FINDINGS: Scattered senescent parenchymal changes noted. Hyperinflation compatible with COPD. No evidence for infiltrate. No evidence for atelectasis. Heart size is stable. Mediastinal structures are stable and grossly unremarkable. No evidence for hilar prominence. Degenerative changes dorsal spine. IMPRESSION: 1. No evidence for acute pulmonary disease. [facility], , 12/19/2024 10:00 AM
[2024-12-19 15:01] LABS: Basophils # (A) 0.06 X 10*3/uL (0.00-0.10); Basophils % (A) 1.3 %; Eosinophils # (A) 0.17 X 10*3/uL (0.04-0.35); Eosinophils % (A) 3.8 %; HCT 40.9 % (37.2-46.3); HGB 13.2 g/dL (12.0-15.0); Immature Grans, Automated 0 %; Lymphocytes # (A) 1.20 X 10*3/uL (0.90-5.00); Lymphocytes % (A) 26.9 %; MCH 27.3 pg (27.0-32.0); MCHC 32.3 g/dL (32.0-37.0); MCV 84.5 FL (80.0-97.0); Monocytes # (A) 0.43 X 10*3/uL (0.20-1.00); Monocytes % (A) 9.6 %; NRBC Per 100 WBC 0 X 10*3/uL (0.00-0.01); Neutrophils # (A) 2.60 X 10*3/uL (1.80-7.70); Neutrophils % (A) 58.4 %; Platelet Count 370 X 10*3/uL (140-440); RBC 4.84 X 10*6/uL (4.10-5.20); RDW 13.2 % (11.5-14.5); WBC 4.46 X 10*3/uL (4.50-10.00)
[2024-12-20 05:24] LABS: Toxoplasma Antibody (IgG) <3.0 IU/mL (<7.2); Toxoplasma Antibody (IgM) <3.0 AU/mL (<8.0)
[2024-12-20 08:59] LABS: HLA B27 NEGATIVE
[2024-12-20 12:06] LABS: Lyme IgG/IgM .157
[2024-12-20 12:41] LABS: Angiotensin-1 Converting Enz. 37 U/L (8-52)
== END | disposition home or self-care (01) ==
LOC: LABWHC1 08:36
PROVIDERS: ATTEND Ophthalmology
DX: H20.12 Chronic iridocyclitis, left eye (principal); H59.032 Cystoid macular edema following cataract surgery, left eye; H21.563 Pupillary abnormality, bilateral
CPT/HCPCS: 36415; 71046; 82164; 85025; 85549; 86592; 86618; 86682; 86777; 86778; 86780; 86812